=== PATIENT | female | born 1960 | race Caucasian/White ===

== ENCOUNTER 2018-04-04 09:57 | Day surgery (SDC) | payer BC ==
[2018-04-04] MEDS ORDERED: ROPIVACAINE 0.5 % 30 ML VIAL ×2 (12:36→15:09)
[2018-04-04] MEDS ORDERED: NEOSTIGMINE 3 MG/3 ML SYRINGE (12:51)
[2018-04-04] MEDS ORDERED: GLYCOPYRROLATE 0.4 MG INJ ×2 (12:51→15:04)
[2018-04-04] MEDS ORDERED: ROCURONIUM 50 MG INJ ×2 (12:51→15:02)
[2018-04-04] MEDS ORDERED: SUCCINYLCHOLINE CHLORIDE 100 MG/5 ML SYG IV (12:51)
[2018-04-04] MEDS ORDERED: LIDOCAINE 2% (SDV) 5 ML INJ (12:51)
[2018-04-04] MEDS ORDERED: PROPOFOL 20 ML (12:51)
[2018-04-04] MEDS ORDERED: CEFAZOLIN 1 GM INJ (12:57)
[2018-04-04] MEDS ORDERED: METOCLOPRAMIDE 10 MG INJ (13:06)
[2018-04-04] MEDS ORDERED: ONDANSETRON 4 MG INJ (13:06)
[2018-04-04] MEDS ORDERED: hydrALAzine 20 MG INJ (13:12)
[2018-04-04] MEDS: POLYMYXIN/BACITRACIN 1L IRRIG IRR (13:28)
[2018-04-04] MEDS ORDERED: SOD CHLORIDE 0.9% 1,000 ML IV (15:52)
[2018-04-04] MEDS ORDERED: hydrALAzine 20 MG INJ IV (16:00)
[2018-04-04] MEDS ORDERED: morphine 2 MG INJ IV (16:00)
[2018-04-04] MEDS ORDERED: DIPHENHYDRAMINE 50 MG INJ IV (16:00)
[2018-04-04] MEDS ORDERED: MEPERIDINE 25 MG INJ IV (16:00)
[2018-04-04] MEDS ORDERED: EPHEDrine SULFATE 50 MG/5 ML SYG IV (16:00)
[2018-04-04] MEDS ORDERED: ONDANSETRON 4 MG INJ IV ×2 (16:00)
[2018-04-04] MEDS ORDERED: MIDAZOLAM 1 MG/ML 2 ML INJ IV (16:00)
[2018-04-04] MEDS ORDERED: METOCLOPRAMIDE 10 MG INJ IV (16:00)
[2018-04-04] MEDS ORDERED: LABETALOL HCL 20MG INJ IV (16:00)
[2018-04-04] MEDS ORDERED: FENTAnyl 50 MCG/ML VIAL IV ×3 (16:00)
[2018-04-04] MEDS ORDERED: HYDROmorphONE 1 MG/5 ML IV SYRINGE IV ×3 (16:00)
[2018-04-04] MEDS ORDERED: OXYCODONE/ACETAMINOPHEN (5/325) TAB PO ×4 (16:00)
== END 2018-04-04 17:46 | disposition home or self-care (01) ==
LOC: SDS 09:57
DX: M19.072 Primary osteoarthritis, left ankle and foot (principal); E03.9 Hypothyroidism, unspecified
CPT/HCPCS: 28750; 73630-LT